=== PATIENT | female | born 1990 | race Two or more races ===

== ENCOUNTER 2018-07-21 14:00 | Emergency (ER) | payer MEDICAID ==
[~2018-07-21] VITALS: Ht 157.5 cm; Wt 72.6 kg
[~2018-07-21 14:00] MED LIST: BENADRYL25 M3 PO; BENTYL10 MG ORAL; NKM; PEPCID20 MG ORAL; PREDNISOLO15 MG/5 M1 ORAL
[2018-07-21] MEDS ORDERED: NS 1000ml 2,200 ML IVLG ONE (14:30)
[2018-07-21] MEDS ORDERED: Ketorolac 30mg Inj IV ONE (14:30)
--- NOTE | 2018-07-21 14:41 | Emergency Room Report ---
History of Present Illness General Chief Complaint: Generalized Weakness Source: Patient Present Illness HPI The patient presents with 2 days of illness. Complains of generalized weakness. She's been nauseated not taking in fluids very well. She also complains of lower back pain that severe. Was gradual in onset but is constant at this time. She rates it 10/10. Aching and pressure. Her last period was normal on the 16th of this month. She denies any dysuria or hematuria. There is no discharge. The patient denies upper respiratory symptomatology including sore throat and cough. There is no chest pain. There is no abdominal pain. She vomited once and said it was lauren material. There are loose stools at this time. She denies headache and generalized weakness. She denies any neck stiffness. No rashes. No ill contacts or travel. She's never been sick in this way before. She is breast feeding her 2 yo child. Patient denies major medical problems including diabetes hypertension arthritis. She was seen in 2014 with epigastric pain and given a prescription for Bentyl at that time. She was seen in 2013 with an allergic reaction. Allergies: Coded Allergies: No Known Allergies (Unverified , 01/09/14) Patient History Past Medical History: see triage record, old chart reviewed Social History: Denies: smoking, alcohol use, drug use Social History Narrative homemaker Last Menstrual Period: 07/13/2018 Reviewed Nursing Documentation: PMH: Agreed; PSxH: Agreed Nursing Documentation-PMH Past Medical History: No Stated History Review of Systems All Other Systems: negative except mentioned in HPI Physical Exam Vital Signs Date Time Temp Pulse Resp B/P (MAP) Pulse Ox O2 Delivery O2 Flow Rate FiO2 07/21/18 14:05 100.3 127 16 107/63 94 Room Air 100.2 Sp02 EP Interpretation: reviewed, normal General Appearance: well appearing, no apparent distress, GCS 15 Head: normocephalic Eyes: bilateral eye normal inspection, bilateral eye PERRL, bilateral eye EOMI ENT: normal pharynx, moist mucus membranes Neck: supple, no meningismus Respiratory: lungs clear, normal breath sounds Cardiovascular #1: tachycardia Cardiovascular #2: 2+ radial (R) Gastrointestinal: normal inspection, normal bowel sounds, non tender, no mass, non-distended Genitourinary: no CVA tenderness Musculoskeletal: gait/station normal, normal range of motion, other - reported back tenderness though ROM good Neurologic: alert, oriented x3, grossly normal Psychiatric: mood/affect normal Skin: normal inspection, warm/dry Medical Decision Making Diagnostic Impression: Primary Impression: Pyelonephritis Additional Impression: Nausea & vomiting Qualified Codes: R11.2 - Nausea with vomiting, unspecified ER Course Patient presents with fever, back pain and generalized weakness with nausea and poor by mouth intake. Differential includes sepsis, pyelonephritis, gastroenteritis, viral syndrome amongst others of. The patient will be evaluated with lab work including urinalysis. Chest x-ray is not indicated as there is no chest symptomatology at this time. She will be monitored on the desk monitor she is tachycardic. She will receive aggressive IV hydration as she's not been able to take fluids by mouth. She'll be given Tylenol, Zofran and Toradol. Results will direct if antibiotics may be started. Pyuria. Rocephin given. WBC normal but left shift. Lactate normal. Improved but JC. Morphine given. Still with nausea. Zofran repeated. Decision to admit. Patient wants outpatient observation. Breast feeding. Tolerating PO. Discussed with patient benefits of hospitalization and risks of home treatment. Told that if not tolerating oral intake and antibiotics to return. Patient set-up for outpatient observation and treatment. Laboratory Tests Test 07/21/18 14:30 07/21/18 15:25 White Blood Count 8.7 K/UL (4.8-10.8) Red Blood Count 5.26 M/UL (4.20-5.40) Hemoglobin 13.8 G/DL (12.0-16.0) Hematocrit 42.5 % (37.0-47.0) Mean Corpuscular Volume 81 FL (80-99) Mean Corpuscular Hemoglobin 26.2 PG (27.0-31.0) L Mean Corpuscular Hemoglobin Concent 32.4 G/DL (32.0-36.0) Red Cell Distribution Width 11.2 % (11.6-14.8) L Platelet Count 227 K/UL (150-450) Mean Platelet Volume 7.4 FL (6.5-10.1) Neutrophils (%) (Auto) % (45.0-75.0) Lymphocytes (%) (Auto) % (20.0-45.0) Monocytes (%) (Auto) % (1.0-10.0) Eosinophils (%) (Auto) % (0.0-3.0) Basophils (%) (Auto) % (0.0-2.0) Differential Total Cells Counted 100 Neutrophils % (Manual) 86 % (45-75) H Lymphocytes % (Manual) 9 % (20-45) L Monocytes % (Manual) 3 % (1-10) Eosinophils % (Manual) 1 % (0-3) Basophils % (Manual) 0 % (0-2) Band Neutrophils 1 % (0-8) Platelet Estimate Adequate Platelet Morphology Normal Anisocytosis Occasional Microcytosis Occasional Prothrombin Time 10.8 SEC (9.30-11.50) Prothrombin Time INR 1.0 (0.9-1.1) PTT 30 SEC (23-33) Sodium Level 137 MMOL/L (136-145) Potassium Level 3.7 MMOL/L (3.5-5.1) Chloride Level 100 MMOL/L (98-107) Carbon Dioxide Level 25 MMOL/L (21-32) Anion Gap 12 mmol/L (5-15) Blood Urea Nitrogen 10 mg/dL (7-18) Creatinine 1.0 MG/DL (0.55-1.30) Estimate Glomerular Filtration Rate > 60 mL/min (>60) Glucose Level 107 MG/DL (74-106) H Lactic Acid Level 1.40 mmol/L (0.4-2.0) Calcium Level 8.5 MG/DL (8.5-10.1) Total Bilirubin 0.4 MG/DL (0.2-1.0) Aspartate Amino Transferase (AST) 32 U/L (15-37) Alanine Aminotransferase (ALT) 31 U/L (12-78) Alkaline Phosphatase 80 U/L (46-116) Total Creatine Kinase 140 U/L (26-308) Troponin I 0.000 ng/mL (0.000-0.056) Total Protein 8.3 G/DL (6.4-8.2) H Albumin 3.8 G/DL (3.4-5.0) Globulin 4.5 g/dL Albumin/Globulin Ratio 0.8 (1.0-2.7) L Urine Color Pale yellow Urine Appearance Slightly cloudy Urine pH 6.5 (4.5-8.0) Urine Specific [place] 1.010 (1.005-1.035) Urine Protein 1+ (NEGATIVE) H Urine Glucose (UA) Negative (NEGATIVE) Urine Ketones Negative (NEGATIVE) Urine Blood 2+ (NEGATIVE) H Urine Nitrite Negative (NEGATIVE) Urine Bilirubin Negative (NEGATIVE) Urine Urobilinogen Normal MG/DL (0.0-1.0) Urine Leukocyte Esterase 1+ (NEGATIVE) H Urine RBC 5-10 /HPF (0 - 2) H Urine WBC 10-15 /HPF (0 - 2) H Urine Squamous Epithelial Cells Many /LPF (NONE/OCC) H Urine Amorphous Sediment Moderate /LPF (NONE) H Urine Bacteria Moderate /HPF (NONE) H Urine HCG, Qualitative Negative (NEGATIVE) Last Vital Signs Date Time Temp Pulse Resp B/P (MAP) Pulse Ox O2 Delivery O2 Flow Rate FiO2 07/21/18 18:52 98.8 102 20 106/68 100 Room Air 98.8 Status: improved Disposition: HOME, SELF-CARE Condition: Improved Scripts Tramadol Hcl* (ULTRAM*) 50 Mg Tablet 50 MG ORAL Q6H PRN for For Pain, #6 TAB 0 Refills Prov: Bjorn Hammer M.D. 07/21/18 Ibuprofen* (MOTRIN*) 600 Mg Tablet 600 MG ORAL Q6H PRN for For Pain, #16 TAB Prov: Bjorn Hammer M.D. 07/21/18 Ondansetron Odt* (ZOFRAN ODT*) 4 Mg Tab.rapdis 4 MG BC EVERY 8 HOURS, #6 TAB 1 Refill Prov: Bjorn Hammer M.D. 07/21/18 Cephalexin* (KEFLEX*) 500 Mg Capsule 500 MG ORAL EVERY 6 HOURS, #40 CAP Prov: Bjorn Hammer M.D. 07/21/18 Referrals: [facility] (PCP) Bjorn Hammer M.D. Jul 21, 2018 14:41
[2018-07-21 14:57] LABS: HEMATOCRIT 42.5 % (37.0-47.0); HEMOGLOBIN 13.8 G/DL (12.0-16.0); MEAN CORPUSCULAR VOLUME 81 FL (80-99); PLATELET COUNT 227 K/UL (150-450); RED BLOOD COUNT 5.26 M/UL (4.20-5.40); RED CELL DISTRIBUTION WIDTH 11.2 % (11.6-14.8); WHITE BLOOD COUNT 8.7 K/UL (4.8-10.8)
[2018-07-21 15:12] LABS: ANION GAP 12 mmol/L (5-15); BLOOD UREA NITROGEN 10 mg/dL (7-18); CALCIUM 8.5 MG/DL (8.5-10.1); CARBON DIOXIDE 25 MMOL/L (21-32); CHLORIDE 100 MMOL/L (98-107); POTASSIUM 3.7 MMOL/L (3.5-5.1); SODIUM 137 MMOL/L (136-145)
[2018-07-21 15:17] LABS: ALANINE AMINOTRANSFERASE 31 U/L (12-78); ALBUMIN 3.8 G/DL (3.4-5.0); ALBUMIN/GLOBULIN RATIO 0.8 (1.0-2.7); ALKALINE PHOSPHATASE 80 U/L (46-116); ASPARTATE AMINO TRANSFERASE 32 U/L (15-37); BILIRUBIN,TOTAL 0.4 MG/DL (0.2-1.0); CREATINE KINASE 140 U/L (26-308)
[2018-07-21] MEDS ORDERED: Morphine Sulfate 4mg/ml Inj (IV USE ONLY) IVP ONE (15:45)
[2018-07-21 15:58] LABS: APPEARANCE,URINE SLIGHTLY CLOUDY; BILIRUBIN, URINE NEGATIVE (NEGATIVE); COLOR,URINE PALE YELLOW; GLUCOSE, URINE (UA) NEGATIVE (NEGATIVE); KETONES,URINE NEGATIVE (NEGATIVE); LEUKOCYTE ESTERASE ,URINE 1+ (NEGATIVE); NITRITE,URINE NEGATIVE (NEGATIVE); PH,URINE 6.5 (4.5-8.0); PROTEIN,URINE 1+ (NEGATIVE); UROBILINOGEN,URINE NORMAL MG/DL (0.0-1.0)
[2018-07-21 16:00] VITALS: BP 104/64
[2018-07-21] MEDS ORDERED: cefTRIAXone 1 GM in NS 55 ML IVPB ONE (16:30)
[2018-07-21 18:00] VITALS: BP 106/68
[2018-07-21] MEDS ORDERED: ONDANSETRON ODT4 MG BC (18:42)
[2018-07-21] MEDS ORDERED: CEPHALEXIN500 MG ORAL (18:42)
[2018-07-21] MEDS ORDERED: TRAMADOL HCL50 MG ORAL (18:42)
[2018-07-21] MEDS ORDERED: IBUPROFEN600 MG ORAL (18:42)
[2018-07-21 18:52] VITALS: BP 106/68
[2018-07-23] MEDS ORDERED: CIPROFLOXACIN500 M2 ORAL (04:10)
[2018-07-23] MEDS ORDERED: METRONIDAZOLE500 MG ORAL (04:10)
[2018-07-23] MEDS ORDERED: HYDROCODON-ACE1 EA15 ORAL (04:11)
== END 2018-07-21 18:52 | disposition home or self-care (01) ==
LOC: EMR 14:17 → CANBEDREQ 18:14 → EMR 18:52
DX: E11.21 Type 2 diabetes mellitus with diabetic nephropathy (principal); N12 Tubulo-interstitial nephritis, not specified as acute or chronic
CPT/HCPCS: 36415; 80053; 81003; 81025; 82550; 83605; 84484; 85007; 85025; 85610; 85730; 87086; 96361; 96365; 96375; 96376; 99285; J0696; J1885; J2270; J2405

== ENCOUNTER 2019-12-07 23:16 | Emergency (ER) | payer MEDICAID ==
[~2019-12-07] VITALS: Ht 157.5 cm; Wt 81.6 kg
[~2019-12-07 23:16] MED LIST changes: +CEPHALEXIN500 MG ORAL; +CIPROFLOXACIN500 M2 ORAL; +HYDROCODON-ACE1 EA15 ORAL; +IBUPROFEN600 MG ORAL; +METRONIDAZOLE500 MG ORAL; +ONDANSETRON ODT4 MG BC; +TRAMADOL HCL50 MG ORAL
[2019-12-07] MEDS ORDERED: Acetaminophen 500mg (ES) tab ORAL ONE (23:45)
--- NOTE | 2019-12-07 23:45 | NUR ---
ED Nurse Note: Recieved pt from home, here wtih c/o mid, lowr back pain at 10/10 since am, pt denies strain to area, fall or any injury, pt also denies any other complaints or discomforts.
[2019-12-08] MEDS ORDERED: Ketorolac 30mg Inj IM ONE (00:15)
[2019-12-08 00:45] VITALS: BP 131/77
--- NOTE | 2019-12-08 01:00 | NUR ---
ER DISCHARGE NOTE: Patient is cleared to be discharged per ERMD, pt is aox4, on room air, with stable vital signs. pt was given dc and prescription instructions, pt was able to verbalize understanding, pt id band removed without complications. pt is able to ambulate with steady gait. pt took all belongings.
[2019-12-08 01:10] VITALS: BP 131/77
[2019-12-08] MEDS ORDERED: NAPROXEN250 MG ORAL (01:10)
[2019-12-08] MEDS ORDERED: LIDODERM700 M1 TOPIC (01:10)
--- NOTE | 2019-12-08 01:10 | Emergency Room Report ---
History of Present Illness General Chief Complaint: Lower Back Pain or Injury Source: Patient Present Illness HPI 29-year-old female presents with low back pain started 4 days ago, aggravated with movement alleviated with rest severity is mild, intermittent, patient has any bowel bladder retention/incontinence, no focal weakness, no perianal numbness, patient describes the backache as achy patient presents for evaluation Allergies: Coded Allergies: No Known Allergies (Unverified , 01/09/14) Patient History Past Medical History: see triage record Last Menstrual Period: June 17, 2019 Now: No Reviewed Nursing Documentation: PMH: Agreed; PSxH: Agreed Nursing Documentation-PMH Hx Gastrointestinal Problems: Yes - pyelonephritis Review of Systems All Other Systems: negative except mentioned in HPI Physical Exam Vital Signs Date Time Temp Pulse Resp B/P (MAP) Pulse Ox O2 Delivery O2 Flow Rate FiO2 12/07/19 23:21 98.1 88 16 129/74 (92) 98 Room Air Sp02 EP Interpretation: reviewed, normal General Appearance: well appearing, no apparent distress, alert Head: normocephalic, atraumatic Eyes: bilateral eye PERRL, bilateral eye EOMI ENT: uvula midline, moist mucus membranes Neck: supple, thyroid normal, supple/symm/no masses Respiratory: lungs clear, no respiratory distress, no retraction, no accessory muscle use Cardiovascular #1: normal peripheral pulses, regular rate, rhythm, no edema, no gallop, no murmur Gastrointestinal: non tender, soft, no guarding, no rebound Musculoskeletal: normal inspection, other - Patient with tenderness lateral right lower back, no midline tenderness Neurologic: alert, oriented x3 Psychiatric: mood/affect normal Skin: no rash, warm/dry Medical Decision Making Diagnostic Impression: Primary Impression: Low back pain Qualified Codes: M54.5 - Low back pain ER Course The patient presents with acute onset of back pain . Clinically this patient can be ruled out for serious pathology given there is a completely normal neurological exam, no history of IV drug use, and no history of bowel or bladder incontinence, no perianal numbness/tingling, no constipation or urinary retention. Once the patient's pain was adequately controlled, the patient was able to ambulate and be discharged in stable condition with anticipatory guidance provided. Patient given Toradol with significant improvement in her pain, Lidoderm patch disposition home with return precautions patient given strict back pain return precautions, patient states she will follow-up with her PCP to see if she needs any advanced imaging. Last Vital Signs Date Time Temp Pulse Resp B/P (MAP) Pulse Ox O2 Delivery O2 Flow Rate FiO2 12/07/19 23:21 98.1 88 16 129/74 (92) 98 Room Air Disposition: HOME, SELF-CARE Condition: Stable Scripts Lidocaine Patch* (Lidoderm Patch*) 1 Each Adh..patch 1 PATCH TOPIC DAILY PRN for For Pain, #7 PATCH 0 Refills Patch(es) may remain in place for up to 12 hours in any 24-hour period. Prov: Aj Peraza MD 12/08/19 Naproxen* (NAPROSYN*) 250 Mg Tablet 250 MG ORAL TID PRN for For Pain, #20 TAB 0 Refills Prov: Aj Peraza MD 12/08/19 Referrals: [facility] Patient Instructions: Low Back Sprain With Rehab-SportsMed, Back Pain, Adult Additional Instructions: The patient was provided with discharge instructions, notified to follow-up with a primary care doctor and or specialist in the next 24-48 hours, and to return to the ED if they have worsening of their symptoms. Please note that this report is being documented using [email or web address] technology. This can lead to erroneous entry secondary to incorrect interpretation by the dictating instrument. Aj Peraza MD Dec 08, 2019 01:10
== END 2019-12-08 01:10 | disposition home or self-care (01) ==
LOC: EMR 23:28
DX: M54.5 Low back pain (principal)
CPT/HCPCS: 81025; 96372; J1885; Z7502; 99283